=== PATIENT | female | born 1975 | race Caucasian/White ===

== ENCOUNTER 2017-05-30 06:06 | Observation (INO) | payer OTHER ==
[~2017-05-30 06:06] MED LIST: Buffered Lidocaine 0.9% SYRIN* 5 ML/SYR SYRINGE INTRADERM ONE; Sodium Citrate/Citric Acid* 15 ML UDC PO ONE
[2017-05-30] MEDS ORDERED: Scopolamine 1.5 mg* PATCH ONE (06:11)
[2017-05-30] MEDS ORDERED: Sodium Citrate/Citric Acid* 15 ML UDC ONE (06:11)
[2017-05-30] MEDS ORDERED: Dexamethasone IV* 4 MG/ML 1 ML (4 MG) ONE (06:11)
[2017-05-30] MEDS ORDERED: Ondansetron INJ* 2 MG/ML VIAL ONE (06:11)
[2017-05-30] MEDS ORDERED: ceFAZolin 2 GM PREMIX (*) 2 GM/50 ML BAG IVPB ONE (06:11)
[2017-05-30] MEDS ORDERED: ceFAZolin 1 GM ADVAN(*) 1 GM ADDV.VIAL IVPB ONE (06:11)
[2017-05-30] MEDS ORDERED: Buffered Lidocaine 0.9% SYRIN* 5 ML/SYR SYRINGE ONE (06:12)
[2017-05-30] MEDS ORDERED: Lidocaine 1% MPF wEPI 200,000* 30 ML SDV ONE ×2 (07:16→07:51)
[2017-05-30] MEDS ORDERED: Bupivacaine 0.25% SDV* 30 ML ONE ×2 (07:17→07:51)
[2017-05-30] MEDS ORDERED: Midazolam* 1 MG/ML 2 ML VIAL (2 MG) ONE (07:32)
[2017-05-30] MEDS ORDERED: fentaNYL* 50 MCG/ML 2 ML VIAL (100 MCG VIAL) ONE ×4 (07:32→12:53)
[2017-05-30] MEDS ORDERED: Propofol* 10 MG/ML 20 ML BTL IV PUSH ONE (07:33)
[2017-05-30] MEDS ORDERED: Cisatracurium* 2 MG/ML MDV 5 ML ONE (07:33)
[2017-05-30] MEDS ORDERED: Lidocaine 2% PF * 5 ML VIAL ONE (07:33)
[2017-05-30] MEDS ORDERED: DiMENhydriNATE IV* 50 MG/ML VIAL IV PUSH PRN (07:48)
[2017-05-30] MEDS ORDERED: Labetalol IV* 5 MG/ML 20 ML VIAL ONE (08:52)
[2017-05-30] MEDS: fentaNYL* 50 MCG/ML 2 ML VIAL (100 MCG VIAL) IV PRN ×4 (12:24→13:23)
[2017-05-30] MEDS ORDERED: Nitroglycerin TAB 0.4 MG* 0.4 MG TAB ONE (12:38)
[2017-05-30] MEDS ORDERED: HYDROmorphone INJ* 1 MG/ML CARPUJECT SYRINGE ONE (13:25)
[2017-05-30] MEDS ORDERED: Mometasone/Formoter 200/5 MDI INH PRN (13:58)
[2017-05-30] MEDS ORDERED: Acetaminophen TAB* 325 MG PO PRN (15:21)
[2017-05-30] MEDS: Gabapentin CAP(*) 300 MG PO SCH ×2 (16:19→21:05)
[2017-05-30] MEDS: HYDROmorphone TAB* 2 MG PO PRN ×2 (16:19→23:34)
[2017-05-30] MEDS ORDERED: Sertraline* 50 MG TAB PO SCH (18:00)
--- NOTE | 2017-05-30 19:40 | HP ---
CC: Dr. Ishmael Love * HISTORY AND PHYSICAL: DATE OF ADMISSION: 05/30/17 PRIMARY CARE PROVIDER: Dr. Ishmael Love. ATTENDING PHYSICIAN: Dr. Rigo Sandra * (dictated by Char Cantu NP). CHIEF COMPLAINT: Sternal chest discomfort, new intermittent left bundle-branch block. HISTORY OF PRESENT ILLNESS: Ms. Stauffer is a 42-year-old female with past medical history significant for chronic neck and back pain, hypertension, asthma , anxiety, depression, and hypertrophy of bilateral breasts, who has been in her usual state of health prior to her arrival at the hospital. The patient presented to the hospital today for an elective bilateral breast reduction mammoplasty with Dr. Bianchi. The patient denies any recent fever, chills, shortness of breath, chest discomfort prior to her procedure, nausea, vomiting, diarrhea, diaphoresis. The patient had an uneventful surgery and was transfered to the recovery room. While being hooked up to telemetry monitoring , she was noted to have wide complex QRS. She was then placed on an EKG machine and was noted to have a new left bundle-branch block. This resolved within approximately a minute and a repeat EKG was obtained showing a normal sinus rhythm with diffuse ST changes with T-wave inversions in lead V2 to V6. It is to note that while the patient was undergoing her preoperative physical with Dr. Bianchi, she was noted to be hypertensive and was referred back to her primary care provider and was started on Cozaar. She reports under going a negative cardiac stress test in 2012. The hospitalists were asked to evaluate the patient for admission. PAST MEDICAL HISTORY: 1. Hypertension. 2. Asthma. 3. Chronic neck and back pain. 4. Depression and anxiety. 5. Hypertrophy of the breasts. PAST SURGICAL HISTORY: 1. Status post L5 to S1 diskectomy, 2013. 2. Status post section x2. 3. Status post partial hysterectomy in 2012. 4. Status post tubal ligation. HOME MEDICATIONS: Include: 1. Dilaudid 2 mg oral every 8 hours as needed for pain. 2. Gabapentin 300 mg oral every 8 hours. 3. Tizanidine 2 mg oral daily at bedtime. 4. Sertraline 150 mg oral every evening. 5. Symbicort 160/4.5 mcg 2 puffs inhalation twice daily as needed. 6. Cozaar 50 mg oral daily. 7. Ferrous sulfate 325 mg oral daily. 8. Multivitamin 1 tablet oral daily. 9. Vitamin C 500 mg oral every morning. ALLERGIES: ADHESIVE TAPE, SIENA, TETANUS SHOTS, OFLOXACIN. FAMILY HISTORY: The patient had a maternal grandfather with a history of myocardial infarction. Father with type 2 diabetes mellitus. She denies any family history of cancer. SOCIAL HISTORY: The patient denies tobacco or recreational drug use. She occasionally drinks alcoholic beverages. The patient does not work due to her chronic neck and back pain. Her , Evens Stauffer will be her surrogate decision maker in the event she is unable to make decisions for herself. PHYSICAL EXAMINATION GENERAL APPEARANCE: The patient is alert, pleasant, and appears to be in no acute distress. VITAL SIGNS: Temperature 97.9, heart rate 79, respiratory rate 17, O2 sat 100% on 2 L via nasal cannula, blood pressure 149/87. HEENT: Normocephalic, atraumatic. Pupils are equal and reactive to light. Extraocular movements are intact. RESPIRATORY: There is no accessory muscle use and lungs are clear to auscultation bilaterally. CARDIOVASCULAR: Regular rate and rhythm. S1 and S2 present. There are no murmurs, rubs, or gallops heard. ABDOMEN: Soft, nontender, nondistended. There are bowel sounds present x4. EXTREMITIES: There is no lower extremity edema. DP and PT pulses are 2+ and symmetric. MUSCULOSKELETAL: There is no clubbing or cyanosis noted. The patient exhibits good strength in all extremities. NEUROLOGICAL: The patient is alert and oriented x4. Cranial nerves II through XII are grossly intact. PSYCHOLOGICAL: The patient is calm and cooperative. SKIN: There are no rashes or abnormalities seen. The patient has a wound VAC intact across her lower chest and to bilateral breasts. DIAGNOSTIC STUDIES/LABORATORY DATA: Preoperative labs from 05/23/17, white blood cell count 5.9, hemoglobin 12.6, hematocrit 38, platelet count 289. Troponin pending from today. EKG from today at 11:29 shows a sinus rhythm with a left bundle-branch block with a rate of 80. Repeat EKG from 12:29 today shows a sinus rhythm and a rate of 71 with T-wave inversions and flattening in V2 to V6. When compared to previous EKG, this is similar to previous EKG from 11/15/15. IMPRESSION: Ms. Stauffer is a 42-year-old female with a past medical history significant for hypertension, asthma, chronic neck and back pain, anxiety, depression, and hypertrophy of the breast who is status post an elective bilateral breast reduction mammoplasty with Dr. Bianchi today, who is found to have a new intermittent left bundle-branch block in the recovery room today. She will be admitted as an observation for chest pain and new left bundle- branch block. ASSESSMENT/PLAN: 1. Chest discomfort and new left bundle-branch block. The patient had an intermittent left bundle-branch block that is now resolved. She is also reporting a burning sensation in her chest. I suspect the burning sensation that she describes is radiating up her sternum. It is likely incisional discomfort. The left bundle-branch block has resolved. We will monitor her on telemetry and trend her troponins. I have touched base with Dr. Almeida with Cardiology, who recommends also performing a transthoracic echocardiogram if the patient is able to tolerate the procedure postoperatively. We will hold off on stress test for now while we trend her troponins and get an echo. 2. Hypertrophy of the breasts. The patient is status post an elective bilateral reduction mammoplasty with Dr. Bianchi today. Management per Dr. Bianchi. 3. Hypertension. The patient will be continued on her home Cozaar. 4. Chronic neck and back pain. The patient will be continued on her home hydromorphone and gabapentin and tizanidine. 5. Anxiety and depression. The patient will be continued on her home sertraline. 6. Asthma. The patient will be continued on Symbicort as needed. 7. Fluids, electrolytes, and nutrition. The patient will be on a clear liquids , advance diet as tolerated. 8. DVT prophylaxis. The patient is at moderate risk and will have SCDs. 9. Code status. Full code. 10. Disposition. Observation. TIME SPENT: Time for this admission was approximately 60 minutes, greater than half of that was spent [id number] with the patient and family discussing medications, past medical history, and the events leading up to her arrival today and performing a physical examination. The case has been reviewed with my attending, Dr. Sandra, who agrees with the plan of care. Reviewed by YAMILEX TOLENTINO 05/31/17 1608 [id number]/[facility] #: [id number] EMMY
[2017-05-30] MEDS ORDERED: tiZANidine TAB* 2 MG PO SCH (21:00)
--- NOTE | 2017-05-30 21:06 | CONS ---
CC: Dr. Bianchi; Ishmael Love MD * CARDIOLOGY CONSULTATION: DATE OF CONSULT: 05/30/17 INDICATION FOR CONSULTATION: Chest pain, left bundle-branch block. HISTORY OF PRESENT ILLNESS: The patient is a 42-year-old female with little past medical history except for mild hypertension, who underwent breast reduction surgery today. The patient states that prior to the surgery, she really had no specific cardiac complaints. She denied any chest pain, shortness of breath. No orthopnea or PND. No palpitations. No lightheadedness , dizziness, or syncope. The patient does get occasional shortness of breath with her asthma, which has been well controlled recently. The patient underwent her surgery today without complications. In the recovery area, the patient was noted to have intermittent left bundle-branch block. In speaking with the patient, she says yes, she has some mild chest pain, it is located around her incision site. She does get a little bit more chest pain with deep inspiration. She denies any lightheadedness, dizziness. She denies any diaphoresis. She denies any nausea. PAST MEDICAL HISTORY: Significant for: 1. Hypertension. 2. Asthma. 3. Chronic back pain. PAST SURGICAL HISTORY: 1. Back surgery with an L5-S1 disk surgery. 2. x2. OUTPATIENT MEDICATIONS: 1. Hydromorphone as directed. 2. Gabapentin 300 mg a day. 3. Sertraline 150 mg a day. ALLERGIES: To TETANUS. FAMILY HISTORY: Positive for skin cancer. SOCIAL HISTORY: She is . She is currently not working. She is on disability. She denies tobacco or alcohol use. PHYSICAL EXAM: Height is 5 feet 9 inches, weight 259 pounds. Temperature 97.4 , heart rate is 80, respiratory rate is 16, oxygen saturation is 100% on 2 L, blood pressure 145/87. Sclerae anicteric. Oropharynx is pink without erythema. Carotids are 2+ without bruits. JVD is normal. Thyroid is normal. Cardiac Exam: S1, S2. No murmurs, rubs, or gallops. Listening in the anterior position, I could not auscultate the apex. Lungs are clear to auscultation bilaterally. There is no dullness to percussion. Abdomen is obese, soft, nontender, nondistended with normoactive bowel sounds. Extremities show no edema. She has 2+ pulses throughout. The patient is awake and alert and oriented. She moves all four extremities equally. DIAGNOSTIC STUDIES/LAB DATA: CBC from May 2014 shows normal. Chemistries from 2016 are normal. Troponins; initial troponin level is 0.0, second troponin 0.01. Her echocardiogram is pending. IMPRESSION: This is a 42-year-old female, who underwent breast reduction surgery today. In the postop area, she had intermittent left bundle-branch block. The patient was also complaining of mild chest pain. Her chest pain seems more incisional, associated with her breast reduction surgery. For now, my recommendation is the patient have 3 negative troponins and an echocardiogram to evaluate her LV function. I do not think a stress test is necessary at this time. I will gladly see the patient in followup after discharge. [id number]/[facility] #: [id number] EMMY
[2017-05-31] MEDS: HYDROmorphone TAB* 2 MG PO PRN ×2 (06:24→11:50)
[2017-05-31] MEDS: Gabapentin CAP(*) 300 MG PO SCH ×2 (08:41→14:30)
[2017-05-31] MEDS ORDERED: Ferrous Sulfate TAB* 325 MG PO SCH (09:00)
[2017-05-31] MEDS ORDERED: Prenatal Vitamin TAB PO SCH (09:00)
[2017-05-31] MEDS ORDERED: Ascorbic Acid TAB* 500 MG PO SCH (09:00)
[2017-05-31] MEDS ORDERED: diPHENhydraMINE PO* 25 MG PO PRN (11:11)
[2017-05-31 11:56] VITALS: BP 126/73
[2017-05-31] MEDS ORDERED: Losartan TAB* 25 MG PO SCH (12:00)
--- NOTE | 2017-05-31 13:36 | ECHO ---
Patient: USMAN OROZCO [facility] Rec#: [id number] : 1975 Date: 05/31/2017 Age: 42y Height: 175.26 cm / 69.0 in Weight: 115.21 kg / 253.9 lbs Sex: F BSA: 2.29 Room#: [facility] Admit Date#: 05/30/2017 Type: Inpatient Referring: Char Barnett NP Reading: Delilah Scott MD Dietary Services Manager: Char Hannon RDCS CC: Ishmael Love MD Transthoracic Echocardiogram Indication: Abnormal EKG BP: 98/44 HR: 73 Rhythm: NSR Findings History: S/p Bilateral breast reduction 05/30/17, HTN, asthma, intermittant LBBB. This is a LIMITED study due to recent incisions and bandaging. Technical Comments: The study is technically difficult. The study is technically limited due to patient body habitus. Completed at 1240. Left Ventricle: The left ventricular chamber size is normal. Mild concentric left ventricular hypertrophy is observed. There is normal left ventricular systolic function. The estimated ejection fraction is 55-60%. The assessment of diastolic function is non-diagnostic. Right Ventricle: The right ventricle is mildly dilated. The right ventricular global systolic function is normal. Aortic Valve: The aortic valve is trileaflet. There is no evidence of aortic regurgitation. There is no evidence of aortic stenosis. Mitral Valve: The mitral valve leaflets are mildly thickened. There is a trace of mitral regurgitation. There is no evidence of mitral stenosis. Tricuspid Valve: The tricuspid valve leaflets are normal. There is trace tricuspid regurgitation. Unable to estimate the right ventricular systolic pressure. There is no tricuspid stenosis. Pulmonic Valve: The pulmonic valve appears normal. There is a trace pulmonic regurgitation. There is no pulmonic stenosis. Pericardium: There is no significant pericardial effusion. A pericardial fat pad is visualized. Aorta: There is mild dilatation of the ascending aorta. There is no dilatation of the aortic arch. The aortic root is normal in size. Pulmonary Artery: The main pulmonary artery appears normal. Venous: The inferior vena cava is dilated. There is an approximate 50% respiratory change in the inferior vena cava dimension. Conclusions The study is technically limited due to patient body habitus, unable to obtain apical views (surgical bandages). - Mild concentric left ventricular hypertrophy is observed. There is normal left ventricular systolic function. The estimated ejection fraction is 55-60%. The right ventricle is mildly dilated. The right ventricular global systolic function is normal. All valves appear structurally normal with normal function. There is a trace of mitral regurgitation. There is trace tricuspid regurgitation. Unable to estimate the right ventricular systolic pressure. There is mild dilatation of the ascending aorta: 3.7 cm. No prior echo to compare. Measurements Name Value Normal Range RVIDd (AP) 2D 3.5 cm (0.9 - 2.6) IVSd (2D) 1.2 cm (0.6 - 1) LVPWd (2D) 1.1 cm (0.6 - 1) LVIDd (2D) 4.9 cm (3.6 - 5.4) LVIDs (2D) 3.8 cm - LV FS (2D) 22 % (25 - 45) Aortic Annulus 2.3 cm (1.4 - 2.6) Ao root diameter (2D) 3.2 cm (2.1 - 3.5) Ascending Ao 3.7 cm (2.1 - 3.4) Aortic arch 3 cm (1.8 - 3.4) Name Value Normal Range BAILEY Vmax 1.18 m/sec - Name Value Normal Range IVC diameter 2.5 cm - Name Value Normal Range PV Vmax 0.74 m/sec - PV peak gradient 2.25 mmHg -
--- NOTE | 2017-05-31 15:23 | PN ---
Subjective Date of Service: 05/31/17 Interval History: Patient seen and examined at bedside. Denies fever, chills, shortness of breath , chest discomfort, N/V/D. Pt states that her pain is controlled with the PO dilaudid. Pt reports itching and a mild rash on her abdomen. Tele: Sinus rhythm, intermittent LBBB, rate 90-100's Family History: Unchanged from Admission Social History: Unchanged from Admission Past Medical History: Unchanged from Admission Objective Active Medications: Acetaminophen (Tylenol Tab*) 650 mg PO Q4H PRN Reason: FEVER/PAIN Ascorbic Acid (Vitamin C Tab*) 500 mg PO QAM VIJAYA Diphenhydramine HCl (Benadryl Po*) 25 mg PO Q6H PRN Reason: ITCHING Ferrous Sulfate (Ferrous Sulfate Tab*) 325 mg PO QAM VIJAYA Gabapentin (Neurontin Cap(*)) 300 mg PO TID VIJAYA Hydromorphone HCl (Dilaudid Tab*) 2 mg PO Q6H PRN Reason: PAIN Losartan Potassium (Cozaar Tab*) 50 mg PO 1200 VIJAYA Mometasone Furoate/Formoterol Fumar (Dulera 200/5 Mdi*) 2 puff INH BID PRN; Protocol Reason: SEASONAL Multivitamins ( Vitamin Tab*) 1 tab PO QAM VIJAYA Sertraline HCl (Zoloft*) 150 mg PO QPM VIJAYA Tizanidine HCl (Zanaflex Tab*) 2 mg PO BEDTIME VIJAYA Vital Signs 05/30/17 05/30/17 05/30/17 15:37 16:00 16:19 Temperature 98 F Pulse Rate 84 Respiratory 16 18 Rate Blood Pressure 145/87 (mmHg) O2 Sat by Pulse 100 100 Oximetry 05/30/17 05/30/17 05/30/17 18:51 19:41 21:05 Temperature 98.7 F Pulse Rate 103 Respiratory 16 24 18 Rate Blood Pressure 133/73 (mmHg) O2 Sat by Pulse 97 Oximetry 05/30/17 05/30/17 05/30/17 23:07 23:22 23:34 Temperature 100.3 F Pulse Rate 105 Respiratory 16 20 17 Rate Blood Pressure 102/44 (mmHg) O2 Sat by Pulse 95 Oximetry 05/31/17 05/31/17 05/31/17 00:00 01:45 02:09 Temperature Pulse Rate Respiratory 16 Rate Blood Pressure (mmHg) O2 Sat by Pulse 95 95 Oximetry 05/31/17 05/31/17 05/31/17 03:26 06:24 07:12 Temperature 99.2 F 98.0 F Pulse Rate 87 86 Respiratory 20 18 16 Rate Blood Pressure 98/44 127/66 (mmHg) O2 Sat by Pulse 95 97 Oximetry 05/31/17 05/31/17 05/31/17 11:31 11:50 14:30 Temperature 98.1 F Pulse Rate 85 Respiratory 18 16 16 Rate Blood Pressure 126/73 (mmHg) O2 Sat by Pulse 95 Oximetry Oxygen Devices in Use Now: None Appearance: NAD, sitting up in bed Ears/Nose/Mouth/Throat: Mucous Membranes Moist Respiratory: Symmetrical Chest Expansion and Respiratory Effort, Clear to Auscultation Cardiovascular: NL Sounds; No Murmurs; No JVD, RRR Skin: - - Wound vac to chest and bilateral breasts intact Neurological: Alert and Oriented x 3, NL Muscle Strength and Tone Lines/Tubes/Other Access: Clean, Dry and Intact Peripheral IV - site benign Nutrition: Taking PO's Assess/Plan/Problems-Billing Assessment: Ms. Stauffer is a 42 yo female with PMH significant for HTN, asthma, chronic neck and back pain, anxiety, depression, hypertrophy of the breasts who underwent an elective bilateral breast reduction with Dr. Bianchi on 05/30 and was found to have a new intermittent LBBB while in recovery. - Patient Problems (1) Left bundle branch block Code(s): I44.7 - LEFT BUNDLE-BRANCH BLOCK, UNSPECIFIED SNOMED Code(s): 67025915 Comment: - New intermittent - Echo - mild LV hypertrophy, EF 60%, normal valve function, aorta diameter 3.7 cm - mildly dilated. - Troponins 0.01, 0.00, 0.00 - Follow with cardiology outpatient (2) Status post bilateral breast reduction Code(s): Z98.890 - OTHER SPECIFIED POSTPROCEDURAL STATES SNOMED Code(s): 985160007 Comment: - POD #1, management per Dr. Bianchi - Pain controlled (3) HTN (hypertension) Code(s): I10 - ESSENTIAL (PRIMARY) HYPERTENSION SNOMED Code(s): 52836734 Comment: - SBP 90-130's - Continue cozaar (4) Chronic pain Code(s): G89.29 - OTHER CHRONIC PAIN SNOMED Code(s): 15784940 Comment: - Continue hydromorphone, gabapentin and tizanidine (5) Anxiety and depression Code(s): F41.8 - OTHER SPECIFIED ANXIETY DISORDERS SNOMED Code(s): 257600722 Comment: - Continue sertraline (6) Asthma Code(s): J45.909 - UNSPECIFIED ASTHMA, UNCOMPLICATED SNOMED Code(s): 621121419 Comment: - Continue Symbicort (7) DVT prophylaxis Code(s): GQA8480 - SNOMED Code(s): 304160033 (8) Full code status Code(s): Z78.9 - OTHER SPECIFIED HEALTH STATUS SNOMED Code(s): 629265275 Status and Disposition: OBV. Stable for discharge to home.
--- NOTE | 2017-05-31 15:56 | PN ---
Subjective Date of Service: 05/31/17 - CC: abormal ECG Interval History: The patient has incisional tenderness, otherwise doing well. Medications Active Medications: Acetaminophen (Tylenol Tab*) 650 mg PO Q4H PRN PRN Reason: FEVER/PAIN Ascorbic Acid (Vitamin C Tab*) 500 mg PO QAM [facility] Last Admin: 05/31/17 08:41 Dose: 500 mg Diphenhydramine HCl (Benadryl Po*) 25 mg PO Q6H PRN PRN Reason: ITCHING Last Admin: 05/31/17 11:29 Dose: 25 mg Ferrous Sulfate (Ferrous Sulfate Tab*) 325 mg PO QAM [facility] Last Admin: 05/31/17 08:41 Dose: 325 mg Gabapentin (Neurontin Cap(*)) 300 mg PO TID [facility] Last Admin: 05/31/17 14:30 Dose: 300 mg Hydromorphone HCl (Dilaudid Tab*) 2 mg PO Q6H PRN PRN Reason: PAIN Last Admin: 05/31/17 11:50 Dose: 2 mg Losartan Potassium (Cozaar Tab*) 50 mg PO 1200 [facility] Last Admin: 05/31/17 11:29 Dose: 50 mg Mometasone Furoate/Formoterol Fumar (Dulera 200/5 Mdi*) 2 puff INH BID PRN; Protocol PRN Reason: SEASONAL Multivitamins ( Vitamin Tab*) 1 tab PO QAM [facility] Last Admin: 05/31/17 08:41 Dose: 1 tab Sertraline HCl (Zoloft*) 150 mg PO QPM [facility] Last Admin: 05/30/17 18:28 Dose: 150 mg Tizanidine HCl (Zanaflex Tab*) 2 mg PO BEDTIME [facility] Last Admin: 05/30/17 21:05 Dose: 2 mg Objective Vital Signs: Temp Pulse Resp BP Pulse Ox 98.1 F 85 16 126/73 95 05/31/17 11:31 05/31/17 11:31 05/31/17 14:34 05/31/17 11:31 05/31/17 11:31 Oxygen Devices in Use Now: None Appearance: middle aged woman, lying 40 degrees, comfortable at rest, clearly tender to move. Eyes: No Scleral Icterus, PERRLA Ears/Nose/Mouth/Throat: Clear Oropharnyx, Mucous Membranes Moist Neck: No Thyroid Enlargement, Masses Respiratory: Symmetrical Chest Expansion and Respiratory Effort, Clear to Auscultation Cardiovascular: NL Sounds; No Murmurs; No JVD, RRR Abdominal: NL Sounds; No Tenderness; No Distention Extremities: No Edema Neurological: Alert and Oriented x 3, NL Muscle Strength and Tone Laboratory Results: 05/30/17 05/30/17 05/30/17 12:49 15:45 19:24 Troponin I 0.01 0.00 0.00 Diagnostic Imaging: Echo today: mild LV hypertrophy, EF 60%, normal valve function, aorta diameter 3.7 cm, mildly dilated. EKG Data: Montitor: in and out of LBBB, baseline ECG w/o LBBB has chronic ST/T changes, stable. Assessment/Plan 42 yo POD#1 breast reduction surgury, intermittent LBBB, atypical/incisional CP. Troponins normal, echo shows normal LV function, evidence of hypertensive heart disease with LVH/aorta dilatation. No evidence of acute ischemia. I recommend continuation of current therapy and keep Dr. Almeida's plan to f/u with him as an outpatient.
--- NOTE | 2017-06-01 03:59 | DS ---
CC: Dr. Ishmael Love; Dr. Osito Almeida; Dr. Casa Bianchi * DISCHARGE SUMMARY: DATE OF ADMISSION: 05/30/17 DATE OF DISCHARGE: 05/31/17 ATTENDING PHYSICIAN: Dr. Rigo Sandra (dictated by Ayse Cantu NP). PRIMARY CARE PROVIDER: Dr. Ishmael Love. PRIMARY DIAGNOSES: 1. New intermittent left bundle branch block. 2. Status post bilateral breast reduction mammoplasty. SECONDARY DIAGNOSES: 1. Hypertension. 2. Asthma. 3. Chronic neck and back pain. 4. Anxiety and depression. CONSULTATIONS WHILE IN THE HOSPITAL: Dr. Osito Almeida and Dr. Delilah Scott with cardiology. PROCEDURES WHILE IN THE HOSPITAL: Status post bilateral reduction mammoplasty with Dr. Casa Bianchi on 05/30/17. STUDIES WHILE IN THE HOSPITAL: Transthoracic echocardiogram, 05/31/17. Research Instrumentation Technician's conclusion: The study is technically limited due to the patient' s body habitus, unable to obtain apical views due to surgical bandages. Mild concentric left ventricular hypertrophy is observed. There is normal left ventricular systolic function. The estimated ejection fraction is 55% to 60%. The left ventricle is mildly dilated, the right ventricular global systolic function is normal. All valves appear structurally normal with normal function. There is a trace of mitral regurgitation, trace tricuspid regurgitation. Unable to estimate the right ventricular systolic pressure. There is mild dilation of the ascending aorta, 3.7 cm. No prior echo for comparison. DISCHARGE MEDICATIONS: Continued home medications: 1. Sertraline 150 mg oral daily at bedtime. 2. Gabapentin 300 mg oral 3 times daily. 3. Tizanidine 2 mg oral daily at bedtime. 4. Multivitamin 1 tablet oral every morning. 5. Losartan 50 mg oral daily. 6. Hydromorphone 2 mg oral every 6 to 8 hours as needed for pain. 7. Ferrous sulfate 325 mg oral every morning. 8. Symbicort 160 mg/4.5 mg 2 puffs inhalation twice daily as needed. 9. Vitamin C 500 mg oral daily. HISTORY OF PRESENT ILLNESS/HOSPITAL COURSE: Ms. Stauffer is a 42-year-old female with a past medical history significant for hypertension, asthma, chronic neck and back pain, anxiety and depression, and hypertrophy of bilateral breasts, who presented to the hospital for an elective bilateral breast reduction mammoplasty with Dr. Bianchi on 05/30/17. The patient was in her usual state of health prior to presenting for the procedure. She had an uneventful procedure and while in the recovery room being hooked up to front desk monitor, was noted to have a wide QRS complex on the monitor. They obtained an EKG showing a left bundle branch block, this resolved after approximately a minute and the patient was found to be in sinus rhythm with diffuse ST changes. The patient was reporting burning sternal chest discomfort. She denied any diaphoresis, nausea, vomiting, previous chest pain prior to the procedure. Hospitalists were asked to evaluate the patient. While in the hospital, the patient was observed on telemetry. She was noted to intermittently have a left bundle branch block. She had her troponins trended; they were negative. She had a transthoracic echocardiogram showing a mild left ventricular hypertrophy and EF of 60% and normal valve function and aorta diameter of 3.7 cm, mildly dilated. She was seen in consultation by Dr. Osito Almeida and Dr. Delilah Scott with Cardiology. The patient's chest discomfort improved and was more located at her incisions on her chest. She had a wound VAC in place. It was felt that she was stable for discharge to home today. Ms. Stauffer is stable for discharge to home today. Vital signs are as follows : Temperature 98.1, heart rate 85, respiratory rate 18, O2 sat 95% on room air, blood pressure 126/73. DISCHARGE PLAN: Ms. Stauffer will be discharged to home. Activity as tolerated. She will be on a regular diet. As far as the management of her bilateral breast reduction mammoplasty, she will be continued on her home Dilaudid 2 mg oral every 8 hours. 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 She has a followup appointment with Dr. Bianchi on 06/05/17 at 1 p.m. She is to keep the wound VAC dressing and the wound VAC in place until she is seen in followup by Dr. Bianchi on Monday. As far as the patient's left bundle branch block, this continues to be intermittent. Her troponins were negative. Her echo also did not reveal significant findings. She is to be seen in followup by her primary care provider, Dr. Love. She has an appointment on 06/07/17, at 9:20 a.m. She also has an appointment scheduled with Dr. Osito Almeida on 08/02/17 at 8:45 a.m. The patient has been resumed on all of her other usual home medications. She has been asked to return to the emergency room for any changes in her chest discomfort or shortness of breath. This is a summarized report of a complex medical history and hospital stay. For further details, please see the entire medical record. TIME SPENT: Time for this discharge was approximately 50 minutes, greater than half of that was spent with the patient and family discussing discharge plans and instructions. CONDITION ON DISCHARGE: Stable. AYSE WARD NP [id number]/[facility] #: [id number] EMM[facility]
== END 2017-05-31 16:15 | disposition home or self-care (01) ==
LOC: OR 06:06 → MEDTELE 15:16
PROVIDERS: ADMIT Hospitalist; ATTEND Plastic Surgery
PROC: 0HBV0ZZ Excision of Bilateral Breast, Open Approach (ICD-10-PCS; principal; 2017-05-30 07:45)
DX: I44.7 Left bundle-branch block, unspecified (principal); I10 Essential (primary) hypertension; J45.909 Unspecified asthma, uncomplicated; M54.2 Cervicalgia; M54.9 Dorsalgia, unspecified; G89.29 Other chronic pain; F41.9 Anxiety disorder, unspecified; F32.9 Major depressive disorder, single episode, unspecified; Z79.899 Other long term (current) drug therapy; Z88.1 Allergy status to other antibiotic agents; Z88.8 Allergy status to other drugs, medicaments and biological substances; R07.9 Chest pain, unspecified; N62 Hypertrophy of breast; I51.7 Cardiomegaly
CPT/HCPCS: 36415; 84484; 88305; 93005; 93308; A9270-GY; G0378; J0690; J1100; J1170; J2001; J2250; J2405; J2704; J3010